=== PATIENT | male | born 1960 | race Caucasian/White ===

== ENCOUNTER 2017-06-20 14:46 | Inpatient (IN) | payer BC ==
[~2017-06-20] VITALS: Ht 182.9 cm; Wt 72.6 kg
[2017-06-20 15:00] VITALS: BP 117/68
--- NOTE | 2017-06-20 16:23 | Emergency Room Report ---
History of Present Illness General Chief Complaint: Altered Level of Consciousness Source: Patient, Family Member, EMS Present Illness HPI 56-year-old male brought in by EMS with altered mental status Patient stated he took 30 of his 1 mg Ativan 6 hours prior Denies other drugs, ETOH His fianc found him altered at home Patient stated he wanted to "check out". No history of previous SI, HI he has known posterior 4 mm aneurysm - scheduled for operation "soon." Was supposed to go to Neurosurg followup today Allergies: Coded Allergies: No Known Allergies (Unverified , 06/20/17) Patient History Past Medical History: other - aneurysm, "heart infection" Past Surgical History: other - Valve replacement Pertinent Family History: none Social History: Denies: smoking, alcohol use, drug use Immunizations: UTD Reviewed Nursing Documentation: PMH: Agreed, PSxH: Agreed Nursing Documentation-PMH Hx Cardiac Problems: Yes Review of Systems All Other Systems: negative except mentioned in HPI Physical Exam Vital Signs Date Time Temp Pulse Resp B/P (MAP) Pulse Ox O2 Delivery O2 Flow Rate FiO2 06/20/17 14:39 98.1 72 16 120/68 99 Room Air Sp02 EP Interpretation: reviewed, normal General Appearance: normal inspection, well appearing, no apparent distress, alert, GCS 15, non-toxic, other - sleepy but arousable Head: normocephalic, atraumatic Eyes: bilateral eye PERRL, bilateral eye EOMI ENT: normal ENT inspection, hearing grossly normal, normal pharynx, no angioedema, normal voice, TMs + canals normal, uvula midline, moist mucus membranes Neck: normal inspection, full range of motion, supple, thyroid normal, no meningismus, no bony tend Respiratory: normal inspection, lungs clear, normal breath sounds, no rhonchi, no respiratory distress, no retraction, no accessory muscle use, no wheezing, speaking full sentences Cardiovascular #1: regular rate, rhythm, no edema, no JVD, normal capillary refill Gastrointestinal: normal inspection, normal bowel sounds, non tender, soft, no mass, no peritonitis, non-distended, no guarding, no hernia, no pulsatile mass Genitourinary: no CVA tenderness Musculoskeletal: normal inspection, back normal, normal range of motion, no calf tenderness, pelvis stable, Meg's Sign negative Neurologic: normal inspection, alert, oriented x3, responsive, flower arranger III-XII nml as tested, motor strength/tone normal, cerebellar normal, normal gait, speech normal Psychiatric: normal inspection, judgement/insight normal, mood/affect normal, no suicidal/homicidal ideation, no delusions Skin: normal inspection, normal color, no rash Lymphatic: normal inspection, no adenopathy Medical Decision Making Diagnostic Impression: Primary Impression: Altered level of consciousness Additional Impressions: Benzodiazepine overdose Qualified Codes: T42.4X2A - Poisoning by benzodiazepines, intentional self- harm, initial encounter MULUGETA (acute kidney injury) Opiate overdose Qualified Codes: T40.602A - Poisoning by unspecified narcotics, intentional self-harm, initial encounter Suicidal ideation ER Course Patient with intentional benzo overdose Vital signs stable Patient sleepy but arousable Endorses SI No antitote available - charcoal not recommended 6 hours out Labs: Urine toxicology positive for opiates Not positive for benzos On CT head: No acute intracranial hemorrhage Questionable benzo overdose, is given IV Narcan low-dose with improvement. Now more awake, patient endorses also opiate OD. Tele admit Panel Dr Wang, 720pm Mild MULUGETA on labs - was given IVF EKG Diagnostic Results Rate: normal Rhythm: NSR ST Segments: no acute changes ASA given to the pt in ED: No Rhythm Strip Diag. Results EP Interpretation: yes Rate: 56 Rhythm: NSR, no PVC's, no ectopy Last Vital Signs Date Time Temp Pulse Resp B/P (MAP) Pulse Ox O2 Delivery O2 Flow Rate FiO2 06/20/17 14:39 98.1 72 16 120/68 99 Room Air Status: improved Disposition: ADMITTED INPATIENT Condition: Serious Referrals: NOT CHOSEN IPA/,REFERRING (PCP) AMBER HANSON M.D. Jun 20, 2017 16:23
[2017-06-20 16:32] LABS: BASOPHILS % (AUTO) 1.1 % (0.0-2.0); EOSINOPHILS % (AUTO) 3.9 % (0.0-3.0); MEAN CORPUSCULAR HEMOGLOBIN 29.2 PG (27.0-31.0); MEAN CORPUSCULAR HGB CONC 31.8 G/DL (32.0-36.0); MEAN CORPUSCULAR VOLUME 92 FL (80-99); MEAN PLATELET VOLUME 5.8 FL (6.5-10.1); MONOCYTES % (AUTO) 6.5 % (1.0-10.0); NEUTROPHILS % (AUTO) 56.5 % (45.0-75.0); PLATELET COUNT 290 K/UL (150-450); RED BLOOD COUNT 5.58 M/UL (4.70-6.10); RED CELL DISTRIBUTION WIDTH 11.5 % (11.6-14.8); WHITE BLOOD COUNT 6.6 K/UL (4.8-10.8)
[2017-06-20 16:44] LABS: ANION GAP 2 mmol/L (5-15); CALCIUM 9.1 MG/DL (8.5-10.1); CARBON DIOXIDE 31 MMOL/L (21-32); CHLORIDE 105 MMOL/L (98-107); CREATININE 1.4 MG/DL (0.55-1.30); GLOMERULAR FILTRATION RATE 52.2 mL/min (>60); POTASSIUM 4.6 MMOL/L (3.5-5.1); SODIUM 138 MMOL/L (136-145)
[2017-06-20 16:52] LABS: ACETAMINOPHEN 19 MCG/ML (10-30); ALANINE AMINOTRANSFERASE 32 U/L (12-78); ALCOHOL < 3 mg/dL; ASPARTATE AMINO TRANSFERASE 31 U/L (15-37); TOTAL PROTEIN 7.2 G/DL (6.4-8.2)
[2017-06-20 17:10] VITALS: BP 104/76
[2017-06-20] MEDS ORDERED: Naloxone 0.4mg/ml Inj IVP ONE (17:30)
[2017-06-20 19:16] VITALS: BP 112/73
[2017-06-20] MEDS ORDERED: ZOLOFT50 MG ORAL (20:41)
[2017-06-20] MEDS ORDERED: ABILIFY10 MG ORAL (20:41)
[2017-06-20] MEDS ORDERED: FLUOXETINE HCL20 MG ORAL (20:41)
[2017-06-20] MEDS ORDERED: ALLOPURINOL100 M1 ORAL (20:41)
[2017-06-20] MEDS ORDERED: ASPIR 8181 MG ORAL (20:41)
[2017-06-20] MEDS ORDERED: NORTRIPTYLINE H75 MG PO (20:41)
[2017-06-20] MEDS ORDERED: VICODIN 5-3001 EACH ORAL (20:48)
[2017-06-20] MEDS ORDERED: ATIVAN0.5 MG ORAL (20:48)
[2017-06-20 21:09] VITALS: BP 111/72
[2017-06-20 23:14] VITALS: BP 102/82
[2017-06-20] MEDS ORDERED: Acetaminophen 500mg (ES) tab ORAL PRN (23:15)
[2017-06-21] VITALS (10 sets, daily range): BP systolic 91–152; BP diastolic 59–97
[2017-06-21 05:42] LABS: BASOPHILS % (AUTO) 0.7 % (0.0-2.0); EOSINOPHILS % (AUTO) 3.3 % (0.0-3.0); LYMPHOCYTES % (AUTO) 34.2 % (20.0-45.0); MEAN CORPUSCULAR HEMOGLOBIN 30.6 PG (27.0-31.0); MEAN CORPUSCULAR HGB CONC 33.2 G/DL (32.0-36.0); MEAN CORPUSCULAR VOLUME 92 FL (80-99); MEAN PLATELET VOLUME 6.4 FL (6.5-10.1); NEUTROPHILS % (AUTO) 55.8 % (45.0-75.0); PLATELET COUNT 299 K/UL (150-450); RED BLOOD COUNT 5.17 M/UL (4.70-6.10); RED CELL DISTRIBUTION WIDTH 11.5 % (11.6-14.8); WHITE BLOOD COUNT 7.3 K/UL (4.8-10.8)
[2017-06-21 05:53] LABS: ALANINE AMINOTRANSFERASE 26 U/L (12-78); ALBUMIN/GLOBULIN RATIO 1.1 (1.0-2.7); ANION GAP 4 mmol/L (5-15); ASPARTATE AMINO TRANSFERASE 28 U/L (15-37); CALCIUM 8.7 MG/DL (8.5-10.1); CARBON DIOXIDE 30 MMOL/L (21-32); CHLORIDE 105 MMOL/L (98-107); CREATININE 1.2 MG/DL (0.55-1.30); GLOMERULAR FILTRATION RATE > 60 mL/min (>60); SODIUM 139 MMOL/L (136-145); TOTAL PROTEIN 6.4 G/DL (6.4-8.2)
--- NOTE | 2017-06-21 11:44 | Diagnostic Imaging Report ---
Indication: Altered mental status Technique: Continuous helical CT scanning of the head was performed without intravenous contrast material. Axial and coronal 5 mm sections were generated. Radiation dose was minimized using automated exposure control Dose: Total Dose Length Product - DLP [address] Dose Index - CTDIvol(s) 70.38 mGy. Comparison: none Findings: The ventricular system is normal in size and configuration. There is no shift of midline structures. No abnormal extra-axial fluid collections are noted. There is no evidence of intracerebral bleeding. No other abnormal high or low density areas are noted within the brain. Intact calvarium. Visualized orbits and sinuses are unremarkable Impression: Normal CT scan of the head without contrast material. This agrees with the preliminary interpretation provided overnight by [facility]. The CT scanner at [facility] is accredited by the [employer] and the scans are performed using protocols designed to limit radiation exposure to as low as reasonably achievable to attain images of sufficient resolution adequate for diagnostic evaluation.
--- NOTE | 2017-06-21 16:59 | Cardiology Report ---
APPROVED REPORT EKG Measurement Heart [id number] Normal sinus rhythm Possible Left atrial enlargement Left axis deviation Low voltage QRS Inferior infarct, age undetermined Cannot rule out Anterior infarct, age undetermined Abnormal ECG
[2017-06-21] MEDS ORDERED: Methocarbamol 500mg tab ORAL PRN (18:30)
--- NOTE | 2017-06-21 18:30 | Consultation ---
History of Present Illness General Date patient seen: Jun 21, 2017 Chief Complaint: Altered Level of Consciousness Present Illness Allergies: Coded Allergies: No Known Allergies (Unverified , 06/20/17) Medication History Scheduled Allopurinol* (Allopurinol*), 200 MG ORAL DAILY, (Reported) Aripiprazole* (Abilify*), 10 MG ORAL HS, (Reported) Fluoxetine Hcl* (Fluoxetine Hcl*), 20 MG ORAL DAILY, (Reported) Lorazepam* (Ativan*), 0.5 MG ORAL THREE TIMES A DAY, (Reported) Nortriptyline Hcl (Nortriptyline Hcl), 150 MG PO DAILY, (Reported) Sertraline Hcl* (Zoloft*), 50 MG ORAL HS, (Reported) Scheduled PRN Hydrocodone Bit/Acetaminophen (Vicodin 5-300 Mg Tablet), 1 TAB ORAL Q4H PRN for For Pain, (Reported) Discontinued Medications Aspirin* (Aspir 81*), 81 MG ORAL DAILY, (Reported) Discontinued Reason: Pt stopped taking med Patient History Healthcare decision maker Resuscitation status Full Code Advanced Directive on File Physical Exam Last 24 Hour Vital Signs Date Time Temp Pulse Resp B/P (MAP) Pulse Ox O2 Delivery O2 Flow Rate FiO2 06/21/17 17:32 69 06/21/17 17:04 74 120/77 06/21/17 16:00 97.0 84 22 152/97 96 06/21/17 12:30 96.6 68 20 112/84 99 Nasal Cannula 2.0 06/21/17 11:47 73 06/21/17 09:37 67 06/21/17 09:00 97.6 74 11 114/59 98 Nasal Cannula 2.0 06/21/17 09:00 97.6 71 15 108/74 99 Nasal Cannula 1.0 06/21/17 08:28 97.6 72 11 108/74 99 Nasal Cannula 1.0 06/21/17 06:41 67 22 114/75 97 Nasal Cannula 1.0 06/21/17 05:11 69 15 112/79 100 Nasal Cannula 2.0 06/21/17 03:11 70 12 91/71 100 Nasal Cannula 2.0 06/21/17 01:20 65 10 99/63 100 Nasal Cannula 2.0 06/20/17 23:14 61 10 102/82 100 Nasal Cannula 2.0 06/20/17 21:09 58 15 111/72 100 Nasal Cannula 2.0 06/20/17 19:16 98.1 60 12 112/73 95 Nasal Cannula 2.0 Intake and Output 06/20/17 06/21/17 19:00 07:00 Intake Total 1000 ml Output Total 30 ml Balance 970 ml Intake IV Total 1000 ml Output Urine Total 30 ml Laboratory Tests Test 06/21/17 05:37 White Blood Count 7.3 K/UL (4.8-10.8) Red Blood Count 5.17 M/UL (4.70-6.10) Hemoglobin 15.8 G/DL (14.2-18.0) Hematocrit 47.6 % (42.0-52.0) Mean Corpuscular Volume 92 FL (80-99) Mean Corpuscular Hemoglobin 30.6 PG (27.0-31.0) Mean Corpuscular Hemoglobin Concent 33.2 G/DL (32.0-36.0) Red Cell Distribution Width 11.5 % (11.6-14.8) L Platelet Count 299 K/UL (150-450) Mean Platelet Volume 6.4 FL (6.5-10.1) L Neutrophils (%) (Auto) 55.8 % (45.0-75.0) Lymphocytes (%) (Auto) 34.2 % (20.0-45.0) Monocytes (%) (Auto) 6.0 % (1.0-10.0) Eosinophils (%) (Auto) 3.3 % (0.0-3.0) H Basophils (%) (Auto) 0.7 % (0.0-2.0) Sodium Level 139 MMOL/L (136-145) Potassium Level 4.0 MMOL/L (3.5-5.1) Chloride Level 105 MMOL/L (98-107) Carbon Dioxide Level 30 MMOL/L (21-32) Anion Gap 4 mmol/L (5-15) L Blood Urea Nitrogen 12 mg/dL (7-18) Creatinine 1.2 MG/DL (0.55-1.30) Estimat Glomerular Filtration Rate > 60 mL/min (>60) Glucose Level 84 MG/DL (74-106) Calcium Level 8.7 MG/DL (8.5-10.1) Total Bilirubin 0.5 MG/DL (0.2-1.0) Aspartate Amino Transf (AST/SGOT) 28 U/L (15-37) Alanine Aminotransferase (ALT/SGPT) 26 U/L (12-78) Alkaline Phosphatase 61 U/L (46-116) Total Protein 6.4 G/DL (6.4-8.2) Albumin 3.3 G/DL (3.4-5.0) L Globulin 3.1 g/dL Albumin/Globulin Ratio 1.1 (1.0-2.7) Height (Feet): 6 Height (Inches): 0.00 Weight (Pounds): 160 Medications Current Medications Medications (Trade) Dose Ordered Sig/Itzel Route PRN Reason Start Time Stop Time Status Last Admin Dose Admin Acetaminophen (Tylenol) 500 mg Q4H PRN ORAL Mild Pain/Temp > 100.5 06/20/17 23:15 07/20/17 23:14 Dextrose (Dextrose 50%) STAT PRN IV Hypoglycemia 06/20/17 23:15 07/20/17 23:14 Assessment/Plan Assessment/Plan (1) Lumbago (2) Polysubstance overdose (3) Suicidal ideation Seen dictated DOYLE HEWITT Jun 21, 2017 18:30
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
[2017-06-22 04:00] VITALS: BP 100/64
--- NOTE | 2017-06-22 06:15 | History and Physical Report ---
DATE OF ADMISSION: 06/20/2017 HISTORY OF PRESENT ILLNESS: History is also correlated by the jorge at the bedside. The patient basically overdosed on a complete bottle of Ambien. The patient says that it was approximately 60 Ambien that he chewed as well as approximately 20 Vicodin and approximately 20 to 30 were also taken for intentional overdose. The patient denies pain. Denies nausea, vomiting, or diarrhea. Denies abdominal pain. Denies shortness of breath. Denies cough. Denies palpitations. Denies chills. Denies chest pain. The patient is admitted to telemetry for close monitoring. PAST MEDICAL HISTORY: Depression, psychosis, gout and depression. The patient also has chronic back pain. Past medical history as mentioned depression, history of drug abuse, chronic back pain, history of smoking and history of anxiety, history of brain aneurysm as well as history of CVA, history of organic brain syndrome and history of hypertension. PAST SURGICAL HISTORY: Appendectomy, heart valve replacement, and history of endocarditis. ALLERGIES: To penicillin. MEDICATIONS: Abilify, Ativan and Zoloft. FAMILY HISTORY: Noncontributory. REVIEW OF SYSTEMS: HEENT: Denies headaches. Respiratory: Denies shortness of breath. Denies cough. Cardiovascular: Denies chest pain. Gastrointestinal: Denies nausea, vomiting, or diarrhea. Extremities: Denies pain. Central venous systems: Significant changes in speech pattern. PHYSICAL EXAMINATION: VITAL SIGNS: Basically, temperature is 97, pulse is 68, and blood pressure 112/84. HEENT: PERRLA. NECK: Supple. No lymphadenopathy. CHEST: Clear to auscultation. CARDIOVASCULAR: Regular rate and rhythm. No murmurs or extra sounds. ABDOMEN: Soft, nontender and nondistended. No organomegaly. EXTREMITIES: No edema. Moves all 4 extremities. NEUROLOGICAL: Sensory is intact to light touch. Reflexes are equal on both sides. Oriented x3. LABORATORY DATA: WBC of 6.6, hemoglobin of 10.3, and platelet 290. Sodium 138, potassium 4.6, BUN 16 and creatinine 1.2. ASSESSMENT AND PLAN: The patient had overdose. I have asked Dr. Springer, Dr. Santana, Dr. Rich, Dr. Reina, and Dr. June to see the patient to make sure that there is no brain damage as well as Dr. Rich for pain control and Dr. Mcmanus for suicide attempt and Dr. Springer for the dehydration . Konrad Tamayo M.D. DR: MJ JOB#: [id number] CC:
[2017-06-22 08:00] VITALS: BP 119/88
--- NOTE | 2017-06-22 09:02 | General Progress Note ---
Assessment/Plan Assessment/Plan (1) Lumbago (2) Polysubstance overdose (3) Suicidal ideation Pt will be continued on the Neurontin and Robaxin. D/w Dr. Rich and he concurred. Subjective Date patient seen: Jun 22, 2017 Time patient seen: 08:15 - am Constitutional: Reports: no symptoms HEENT: Reports: no symptoms Cardiovascular: Reports: no symptoms Respiratory: Reports: no symptoms Gastrointestinal/Abdominal: Reports: no symptoms Genitourinary: Reports: no symptoms Neurologic/Psychiatric: Reports: anxiety, depressed, emotional problems Endocrine: Reports: no symptoms Hematologic/Lymphatic: Reports: no symptoms Allergies: Coded Allergies: No Known Allergies (Unverified , 06/20/17) Subjective Patient in bed and shows no signs of pain. He has received 2 doses of the Neurontin. He is emotional this morning and waiting to be seen by the Neurologist and Psychiatrist. Objective Last 24 Hour Vital Signs Date Time Temp Pulse Resp B/P (MAP) Pulse Ox O2 Delivery O2 Flow Rate FiO2 06/22/17 08:00 97.9 85 17 119/88 96 Room Air 06/22/17 04:00 97.0 64 18 100/64 98 Room Air 06/22/17 04:00 78 06/22/17 00:00 80 06/21/17 20:35 96.3 70 18 118/77 90 Room Air 06/21/17 20:00 75 06/21/17 17:32 69 06/21/17 17:04 74 120/77 06/21/17 16:00 97.0 84 22 152/97 96 06/21/17 12:30 96.6 68 20 112/84 99 Nasal Cannula 2.0 06/21/17 11:47 73 06/21/17 09:37 67 Intake and Output 06/21/17 06/22/17 19:00 07:00 Intake Total 375 ml 300 ml Balance 375 ml 300 ml Intake Oral 300 ml IV Total 375 ml # Voids 3 4 Height (Feet): 6 Height (Inches): 0.00 Weight (Pounds): 160 General Appearance: alert EENT: PERRL/EOMI, normal ENT inspection Neck: non-tender, normal alignment Cardiovascular: normal rate, regular rhythm Respiratory/Chest: lungs clear, normal breath sounds Abdomen: non tender, soft Extremities: non-tender, normal inspection Edema: no edema noted Arm (L), no edema noted Arm (R), no edema noted Leg (L), no edema noted Leg (R), no edema noted Pedal (L), no edema noted Pedal (R), no edema noted Generalized Neurologic: alert, responsive Skin: warm/dry DOYLE HEWITT Jun 22, 2017 09:02
[2017-06-22 09:19] LABS: EOSINOPHILS % (AUTO) 3.5 % (0.0-3.0); LYMPHOCYTES % (AUTO) 21.4 % (20.0-45.0); MEAN CORPUSCULAR HEMOGLOBIN 31.4 PG (27.0-31.0); MEAN CORPUSCULAR VOLUME 92 FL (80-99); MEAN PLATELET VOLUME 6.1 FL (6.5-10.1); MONOCYTES % (AUTO) 6.1 % (1.0-10.0); PLATELET COUNT 304 K/UL (150-450); RED BLOOD COUNT 5.17 M/UL (4.70-6.10); RED CELL DISTRIBUTION WIDTH 11.2 % (11.6-14.8); WHITE BLOOD COUNT 7.5 K/UL (4.8-10.8)
[2017-06-22 10:11] LABS: ALANINE AMINOTRANSFERASE 26 U/L (12-78); ALBUMIN/GLOBULIN RATIO 0.9 (1.0-2.7); ANION GAP 12 mmol/L (5-15); ASPARTATE AMINO TRANSFERASE 22 U/L (15-37); CALCIUM 8.7 MG/DL (8.5-10.1); CARBON DIOXIDE 25 MMOL/L (21-32); CHLORIDE 104 MMOL/L (98-107); CREATININE 1.2 MG/DL (0.55-1.30); GLOMERULAR FILTRATION RATE > 60 mL/min (>60); POTASSIUM 3.4 MMOL/L (3.5-5.1); SODIUM 140 MMOL/L (136-145); TOTAL PROTEIN 6.6 G/DL (6.4-8.2)
[2017-06-22 12:00] VITALS: BP 131/97
--- NOTE | 2017-06-22 13:54 | Neurology Progress Note ---
Objective Physical Exam Last Vital Signs Date Time Temp Pulse Resp B/P (MAP) Pulse Ox O2 Delivery O2 Flow Rate FiO2 06/22/17 12:00 97.7 86 18 131/97 99 Room Air 06/21/17 12:30 2.0 Laboratory Tests Test 06/22/17 08:20 White Blood Count 7.5 K/UL (4.8-10.8) Red Blood Count 5.17 M/UL (4.70-6.10) Hemoglobin 16.2 G/DL (14.2-18.0) Hematocrit 47.7 % (42.0-52.0) Mean Corpuscular Volume 92 FL (80-99) Mean Corpuscular Hemoglobin 31.4 PG (27.0-31.0) H Mean Corpuscular Hemoglobin Concent 34.0 G/DL (32.0-36.0) Red Cell Distribution Width 11.2 % (11.6-14.8) L Platelet Count 304 K/UL (150-450) Mean Platelet Volume 6.1 FL (6.5-10.1) L Neutrophils (%) (Auto) 68.0 % (45.0-75.0) Lymphocytes (%) (Auto) 21.4 % (20.0-45.0) Monocytes (%) (Auto) 6.1 % (1.0-10.0) Eosinophils (%) (Auto) 3.5 % (0.0-3.0) H Basophils (%) (Auto) 1.0 % (0.0-2.0) Sodium Level 140 MMOL/L (136-145) Potassium Level 3.4 MMOL/L (3.5-5.1) L Chloride Level 104 MMOL/L (98-107) Carbon Dioxide Level 25 MMOL/L (21-32) Anion Gap 12 mmol/L (5-15) Blood Urea Nitrogen 14 mg/dL (7-18) Creatinine 1.2 MG/DL (0.55-1.30) Estimat Glomerular Filtration Rate > 60 mL/min (>60) Glucose Level 162 MG/DL (74-106) H Calcium Level 8.7 MG/DL (8.5-10.1) Total Bilirubin 0.2 MG/DL (0.2-1.0) Aspartate Amino Transf (AST/SGOT) 22 U/L (15-37) Alanine Aminotransferase (ALT/SGPT) 26 U/L (12-78) Alkaline Phosphatase 65 U/L (46-116) Total Protein 6.6 G/DL (6.4-8.2) Albumin 3.2 G/DL (3.4-5.0) L Globulin 3.4 g/dL Albumin/Globulin Ratio 0.9 (1.0-2.7) L Impression/Recommendations Recommendations #[id number] MARIBEL ROMAN Jun 22, 2017 13:54
[2017-06-22 16:00] VITALS: BP 139/86
--- NOTE | 2017-06-22 17:15 | Consultation ---
DATE OF CONSULTATION: 06/21/2017 NOTE: POOR AUDIO QUALITY PAIN MANAGEMENT CONSULTATION CONSULTING PHYSICIAN: Brandyn Rich M.D. REFERRING PHYSICIAN: Konrad Tamayo M.D. PHYSICIAN SUPER[employer]OR [employer]: Rebeca Reich CHIEF COMPLAINT: Polysubstance overdose. HISTORY OF PRESENT ILLNESS: This is a 56-year-old male, who [place] [facility] [place]. The patient is having multiple issues at home and low back pain. It causes him chronic pain and reporting that he is becoming overly depressed taking Ativan, Ambien, and Vicodin in a suicidal attempt. He was brought to the emergency room where Narcan was given. The patient now is in the bed and no signs of distress or pain at this time. He complaining of chronic back pain with radiation to the right lower extremity. He is taking Vicodin as an outpatient which he received 20 tabs from an ER physician and given epidural injection. The patient also is seeing a neurologist and Neurosurgery due to aneurysm as an outpatient. We were consulted so that the patient would have adequate pain control while here in the hospital. PAST MEDICAL HISTORY: Hypertension and endocarditis. PAST SURGICAL HISTORY: Left knee, open heart surgery, appendectomy, and nasal surgery. MEDICATIONS: Ativan, Abilify, fluoxetine, Ativan, atropine, Zoloft, Ambien, and Vicodin. ALLERGIES: No known drug allergies. SOCIAL HISTORY: He is having a history of smoking tobacco and drug abuse. Denies alcohol use. REVIEW OF SYSTEMS: Denies rash, fever, chills, sweating, dizziness, drowsiness, blurred vision, sore throat, or change in his weight. No shortness of breath, chest pain, palpitations, or cough. No nausea, vomiting, diarrhea, or blood in the stool or urine. No bowel or bladder incontinence. No dysuria. He is complaining of low back pain. PHYSICAL EXAMINATION: GENERAL: Alert, awake, and oriented x3. VITAL SIGNS: Blood pressure 120/71, heart rate 74, oxygen saturation is 92%, respirations 20, and temperature 97 degrees Fahrenheit. HEENT: PERRLA. NECK: Range of motion is full. No tenderness to paracervical muscles. No adenopathy. LUNGS: Clear. HEART: Regular. ABDOMEN: Benign. BACK: Range of motion is decreased in flexion and extension with tenderness to paraspinal muscles, trapezius, and rhomboid muscles. EXTREMITIES: Upper extremity range of motion is full in all directions. Motor is intact. No cyanosis. No clubbing. No edema. Sensory is intact. Reflexes are not obtainable. No adenopathy. Lower extremity range of motion is full in all directions. Motor is intact. No cyanosis. No clubbing. No edema. Sensory is intact. Reflexes are not obtainable. No adenopathy. ASSESSMENT AND PLAN: This is a 56-year-old male with lumbago, polysubstance overdose, and suicidal ideation. The patient is will be started on Neurontin 100 mg tablet three times a day with Robaxin 500 mg tablet every eight hours as needed for muscle spasm. We recommend the patient to be seen by a psychiatrist as well as a neurologist for further care. The patient was discussed with Dr. Rich and Dr. Rich concurred. We will follow the patient. Thank you very much for the courtesy of this consultation. Brandyn Rich M.D. DALTON Reich DR: SHANA JOB#: [id number] CC: KAMERON
--- NOTE | 2017-06-22 19:18 | Cardiology Progress Note ---
Assessment/Plan Assessment/Plan The patient is seen and examined, full consult note is dictated. Objective Last 24 Hour Vital Signs Date Time Temp Pulse Resp B/P (MAP) Pulse Ox O2 Delivery O2 Flow Rate FiO2 06/22/17 16:00 97.7 79 19 139/86 97 Room Air 06/22/17 16:00 97 06/22/17 12:00 97.7 86 18 131/97 99 Room Air 06/22/17 12:00 93 06/22/17 08:00 87 06/22/17 08:00 97.9 85 17 119/88 96 Room Air 06/22/17 04:00 97.0 64 18 100/64 98 Room Air 06/22/17 04:00 78 06/22/17 00:00 80 06/21/17 20:35 96.3 70 18 118/77 90 Room Air 06/21/17 20:00 75 Intake and Output 06/21/17 06/22/17 19:00 07:00 Intake Total 375 ml 300 ml Balance 375 ml 300 ml Intake Oral 300 ml IV Total 375 ml # Voids 3 4 Laboratory Tests Test 06/22/17 08:20 White Blood Count 7.5 K/UL (4.8-10.8) Red Blood Count 5.17 M/UL (4.70-6.10) Hemoglobin 16.2 G/DL (14.2-18.0) Hematocrit 47.7 % (42.0-52.0) Mean Corpuscular Volume 92 FL (80-99) Mean Corpuscular Hemoglobin 31.4 PG (27.0-31.0) H Mean Corpuscular Hemoglobin Concent 34.0 G/DL (32.0-36.0) Red Cell Distribution Width 11.2 % (11.6-14.8) L Platelet Count 304 K/UL (150-450) Mean Platelet Volume 6.1 FL (6.5-10.1) L Neutrophils (%) (Auto) 68.0 % (45.0-75.0) Lymphocytes (%) (Auto) 21.4 % (20.0-45.0) Monocytes (%) (Auto) 6.1 % (1.0-10.0) Eosinophils (%) (Auto) 3.5 % (0.0-3.0) H Basophils (%) (Auto) 1.0 % (0.0-2.0) Sodium Level 140 MMOL/L (136-145) Potassium Level 3.4 MMOL/L (3.5-5.1) L Chloride Level 104 MMOL/L (98-107) Carbon Dioxide Level 25 MMOL/L (21-32) Anion Gap 12 mmol/L (5-15) Blood Urea Nitrogen 14 mg/dL (7-18) Creatinine 1.2 MG/DL (0.55-1.30) Estimat Glomerular Filtration Rate > 60 mL/min (>60) Glucose Level 162 MG/DL (74-106) H Calcium Level 8.7 MG/DL (8.5-10.1) Total Bilirubin 0.2 MG/DL (0.2-1.0) Aspartate Amino Transf (AST/SGOT) 22 U/L (15-37) Alanine Aminotransferase (ALT/SGPT) 26 U/L (12-78) Alkaline Phosphatase 65 U/L (46-116) Total Protein 6.6 G/DL (6.4-8.2) Albumin 3.2 G/DL (3.4-5.0) L Globulin 3.4 g/dL Albumin/Globulin Ratio 0.9 (1.0-2.7) L BILLIE GREER Jun 22, 2017 19:18
[2017-06-22 20:36] VITALS: BP 108/74
--- NOTE | 2017-06-22 21:00 | General Progress Note ---
Assessment/Plan Problem List: (1) Altered level of consciousness ICD Codes: R40.4 - Transient alteration of awareness SNOMED: 5952424 (2) Benzodiazepine overdose ICD Codes: T42.4X1A - Poisoning by benzodiazepines, accidental (unintentional) , initial encounter SNOMED: 795956878 Qualifiers: Qualified Codes: T42.4X2A - Poisoning by benzodiazepines, intentional self- harm, initial encounter (3) Opiate overdose ICD Codes: T40.601A - Poisoning by unspecified narcotics, accidental ( unintentional), initial encounter SNOMED: 712566373, 430539808 Qualifiers: Qualified Codes: T40.602A - Poisoning by unspecified narcotics, intentional self-harm, initial encounter (4) Suicidal ideation ICD Codes: R45.851 - Suicidal ideations SNOMED: 2382731, 194377139 Status: progressing Assessment/Plan patient and family insisting to go home so i gave dc order as long as cleared by dr fountain and dr whitehead and dr coronado Subjective ROS Limited/Unobtainable: Yes Allergies: Coded Allergies: No Known Allergies (Unverified , 06/20/17) Objective Last 24 Hour Vital Signs Date Time Temp Pulse Resp B/P (MAP) Pulse Ox O2 Delivery O2 Flow Rate FiO2 06/22/17 20:36 97.3 86 18 108/74 97 Room Air 06/22/17 16:00 97.7 79 19 139/86 97 Room Air 06/22/17 16:00 97 06/22/17 12:00 97.7 86 18 131/97 99 Room Air 06/22/17 12:00 93 06/22/17 08:00 87 06/22/17 08:00 97.9 85 17 119/88 96 Room Air 06/22/17 04:00 97.0 64 18 100/64 98 Room Air 06/22/17 04:00 78 06/22/17 00:00 80 Intake and Output 06/21/17 06/22/17 19:00 07:00 Intake Total 375 ml 300 ml Balance 375 ml 300 ml Intake Oral 300 ml IV Total 375 ml # Voids 3 4 Laboratory Tests 06/22/17 08:20: White Blood Count 7.5, Red Blood Count 5.17, Hemoglobin 16.2, Hematocrit 47.7, Mean Corpuscular Volume 92, Mean Corpuscular Hemoglobin 31.4H, Mean Corpuscular Hemoglobin Concent 34.0, Red Cell Distribution Width 11.2L, Platelet Count 304, Mean Platelet Volume 6.1L, Neutrophils (%) (Auto) 68.0, Lymphocytes (%) (Auto) 21.4, Monocytes (%) (Auto) 6.1, Eosinophils (%) (Auto) 3.5H, Basophils (%) (Auto ) 1.0, Sodium Level 140, Potassium Level 3.4L, Chloride Level 104, Carbon Dioxide Level 25, Anion Gap 12, Blood Urea Nitrogen 14, Creatinine 1.2, Estimat Glomerular Filtration Rate > 60, Glucose Level 162H, Calcium Level 8.7, Total Bilirubin 0.2, Aspartate Amino Transf (AST/SGOT) 22, Alanine Aminotransferase ( ALT/SGPT) 26, Alkaline Phosphatase 65, Total Protein 6.6, Albumin 3.2L, Globulin 3.4, Albumin/Globulin Ratio 0.9L Height (Feet): 6 Height (Inches): 0.00 Weight (Pounds): 160 Konrad Tamayo MD Jun 22, 2017 21:00
--- NOTE | 2017-06-22 22:24 | General Progress Note ---
Assessment/Plan Status: stable Assessment/Plan mdd narcissism borderline not a dts/dto may leave Subjective Neurologic/Psychiatric: Reports: anxiety, depressed, emotional problems Allergies: Coded Allergies: No Known Allergies (Unverified , 06/20/17) Subjective the pt denied si/hi the pts case was discussed with family at length the pt wants to go home family wants to take him home Objective Last 24 Hour Vital Signs Date Time Temp Pulse Resp B/P (MAP) Pulse Ox O2 Delivery O2 Flow Rate FiO2 06/22/17 20:36 97.3 86 18 108/74 97 Room Air 06/22/17 16:00 97.7 79 19 139/86 97 Room Air 06/22/17 16:00 97 06/22/17 12:00 97.7 86 18 131/97 99 Room Air 06/22/17 12:00 93 06/22/17 08:00 87 06/22/17 08:00 97.9 85 17 119/88 96 Room Air 06/22/17 04:00 97.0 64 18 100/64 98 Room Air 06/22/17 04:00 78 06/22/17 00:00 80 Intake and Output 06/21/17 06/22/17 19:00 07:00 Intake Total 375 ml 300 ml Balance 375 ml 300 ml Intake Oral 300 ml IV Total 375 ml # Voids 3 4 Laboratory Tests 06/22/17 08:20: White Blood Count 7.5, Red Blood Count 5.17, Hemoglobin 16.2, Hematocrit 47.7, Mean Corpuscular Volume 92, Mean Corpuscular Hemoglobin 31.4H, Mean Corpuscular Hemoglobin Concent 34.0, Red Cell Distribution Width 11.2L, Platelet Count 304, Mean Platelet Volume 6.1L, Neutrophils (%) (Auto) 68.0, Lymphocytes (%) (Auto) 21.4, Monocytes (%) (Auto) 6.1, Eosinophils (%) (Auto) 3.5H, Basophils (%) (Auto ) 1.0, Sodium Level 140, Potassium Level 3.4L, Chloride Level 104, Carbon Dioxide Level 25, Anion Gap 12, Blood Urea Nitrogen 14, Creatinine 1.2, Estimat Glomerular Filtration Rate > 60, Glucose Level 162H, Calcium Level 8.7, Total Bilirubin 0.2, Aspartate Amino Transf (AST/SGOT) 22, Alanine Aminotransferase ( ALT/SGPT) 26, Alkaline Phosphatase 65, Total Protein 6.6, Albumin 3.2L, Globulin 3.4, Albumin/Globulin Ratio 0.9L Height (Feet): 6 Height (Inches): 0.00 Weight (Pounds): 160 General Appearance: WD/WN, no apparent distress, alert Neurologic: alert, oriented x 3, responsive, depressed affect Raphael Mcmanus M.D. Jun 22, 2017 22:24
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
--- NOTE | 2017-06-22 23:45 | Consultation ---
DATE OF CONSULTATION: 06/22/2017 CARDIOLOGY CONSULTATION CONSULTING PHYSICIAN: Jan June M.D. REFERRING PHYSICIAN: Konrad Tamayo M.D. REASON FOR CONSULTATION: Management of heart murmur and irregular heart beat. HISTORY OF PRESENT ILLNESS: The patient is a very unfortunate 56-year-old gentleman with history of major depression, who had suicidal ideation due to a variety of factors including his recently diagnosed mycotic aneurysm, also a few other health issues, who had taken about 30 pills, a combination of lorazepam, Vicodin, and Ambien. He presented to the hospital. He was found down by his fiancee at home being altered. He was brought by paramedics to this facility. Initial blood pressure was 120/68 mm Hg and heart rate of 72. A 12-lead electrocardiogram showed sinus. He had 30 tablets of combination of Ativan and Ambien as well as Vicodin. He was found down by his fiancee at home. He was brought down to the [facility] emergency department where his blood pressure was 120/68 and pulse of 72. Initial 12-lead electrocardiogram shows sinus rhythm with left axis deviation and QT prolongation. The patient was admitted to the telemetry for further evaluation and management. His cardiac history is significant for history of mitral valve prolapse, for which he had mitral valve repair. He had bacterial endocarditis a year after this procedure, for which he required robotic mitral valve replacement done by Dr. Trejo at [facility]. 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 He is scheduled to be operated by Dr. Smart at [facility]. PAST MEDICAL HISTORY: Bacterial endocarditis, mitral valve prolapse, and depression. PAST SURGICAL HISTORY: 1. Mitral valve repair. 2. Mitral valve replacement, robotic by Dr. Trejo at [facility]. SOCIAL HISTORY: Denies any tobacco, alcohol, or illicit drug use. FAMILY HISTORY: No premature coronary artery disease in first-degree relatives. REVIEW OF SYSTEMS: HEENT: Denies any headache, diplopia, or blurred vision. CONSTITUTIONAL: Denies any fever, chills, night sweats, or weight loss. CARDIOVASCULAR: Denies any chest pain, shortness of breath, PND, orthopnea, or leg swelling at this time. PULMONARY: Denies any cough, hemoptysis, or wheezing. GASTROINTESTINAL: Denies any nausea, vomiting, diarrhea, constipation, abdominal pain, or GI bleed. GENITOURINARY: Denies any hematuria, dysuria, or incontinence. NEUROLOGY: Denies any motor dysfunction, sensory deficit, or altered speech. PHYSICAL EXAMINATION: GENERAL: The patient is a very unfortunate 56-year-old gentleman, in no apparent respiratory distress. Alert and oriented x4. VITAL SIGNS: Blood pressure was 120/68, pulse of 72, respirations 16, temperature 98.1 degrees Fahrenheit, and O2 saturation 99% on room air. HEENT: Atraumatic and normocephalic. Anicteric. Pupils are equal, round, and reactive to light and accommodation. Extraocular muscles intact. NECK: JVP less than 5 cm. No carotid bruit. Carotid upstrokes 2+ bilaterally. CARDIOVASCULAR: Normal S1 and S2. Regular rate and rhythm. There is a 2/6 mid systolic murmur at the left sternal border. There is midsternal scarring. LUNGS: Clear to auscultation bilaterally. ABDOMEN: Soft, nontender, and nondistended. No hepatosplenomegaly. Positive bowel sounds. EXTREMITIES: No evidence of edema, clubbing, or cyanosis. LABORATORY AND DIAGNOSTIC DATA: Sodium was 138, potassium is 4.6, chloride 105, bicarbonate 31, BUN of 16, creatinine 1.4, and glucose is 103. Calcium is 9.1. WBC 6.6, hemoglobin 16.3, hematocrit 51.3 and platelet count is 290. A 12-lead electrocardiogram, sinus rhythm at a rate of 60 with left axis deviation, QS complex is suggestive of inferior wall infarct, left atrial enlargement, and QT prolongation. ASSESSMENT AND PLAN: The patient is a very unfortunate 56-year-old gentleman, who was seen in Cardiology consultation at the request of Dr. Tamayo. 1. Atrial premature complexes, which were evident on the cardiac cath tech, benign conditions. The patient does not require any treatment. This most likely originated from enlarged left atrium. 2. History of mitral valve prolapse with regurgitation, status post mitral valve repair. 3. History of bacterial endocarditis, status post mitral valve replacement by Dr. Trejo at [facility]. 4. Suicidal ideation. The patient was seen by Dr. Mcmanus in psychiatric consultation. 5. QT prolongation. I would like to give empiric magnesium sulfate administration about 2 g prior to discharge. I would like to thank, Dr. Tamayo, for allowing me to participate in the care of this patient. Jan June M.D. DR: NILSA JOB#: [id number] CC:
[2017-06-23 00:52] VITALS: BP 101/66
[2017-06-23 04:26] VITALS: BP 112/68
[2017-06-23 08:00] VITALS: BP 124/86
--- NOTE | 2017-06-23 08:09 | Cardiology Progress Note ---
Assessment/Plan Assessment/Plan 1. Atrial premature complexes, no cardiac intervention required. 2. History of mitral valve prolapse with regurgitation, status post mitral valve repair. 3. History of bacterial endocarditis, status post mitral valve replacement, stable. 4. QT prolongation, magnesium sulfate given, Mg level this am Subjective Subjective Sinus rhythm at 64. Objective Last 24 Hour Vital Signs Date Time Temp Pulse Resp B/P (MAP) Pulse Ox O2 Delivery O2 Flow Rate FiO2 06/23/17 04:26 97.7 64 18 112/68 96 Room Air 06/23/17 04:00 67 06/23/17 00:52 97.5 73 18 101/66 97 Room Air 06/23/17 00:00 75 06/22/17 20:36 97.3 86 18 108/74 97 Room Air 06/22/17 20:00 94 06/22/17 16:00 97.7 79 19 139/86 97 Room Air 06/22/17 16:00 97 06/22/17 12:00 97.7 86 18 131/97 99 Room Air 06/22/17 12:00 93 Intake and Output 06/22/17 06/23/17 19:00 07:00 Output Total 400 ml Balance -400 ml Output Urine Total 400 ml Laboratory Tests Test 06/22/17 08:20 White Blood Count 7.5 K/UL (4.8-10.8) Red Blood Count 5.17 M/UL (4.70-6.10) Hemoglobin 16.2 G/DL (14.2-18.0) Hematocrit 47.7 % (42.0-52.0) Mean Corpuscular Volume 92 FL (80-99) Mean Corpuscular Hemoglobin 31.4 PG (27.0-31.0) H Mean Corpuscular Hemoglobin Concent 34.0 G/DL (32.0-36.0) Red Cell Distribution Width 11.2 % (11.6-14.8) L Platelet Count 304 K/UL (150-450) Mean Platelet Volume 6.1 FL (6.5-10.1) L Neutrophils (%) (Auto) 68.0 % (45.0-75.0) Lymphocytes (%) (Auto) 21.4 % (20.0-45.0) Monocytes (%) (Auto) 6.1 % (1.0-10.0) Eosinophils (%) (Auto) 3.5 % (0.0-3.0) H Basophils (%) (Auto) 1.0 % (0.0-2.0) Sodium Level 140 MMOL/L (136-145) Potassium Level 3.4 MMOL/L (3.5-5.1) L Chloride Level 104 MMOL/L (98-107) Carbon Dioxide Level 25 MMOL/L (21-32) Anion Gap 12 mmol/L (5-15) Blood Urea Nitrogen 14 mg/dL (7-18) Creatinine 1.2 MG/DL (0.55-1.30) Estimat Glomerular Filtration Rate > 60 mL/min (>60) Glucose Level 162 MG/DL (74-106) H Calcium Level 8.7 MG/DL (8.5-10.1) Total Bilirubin 0.2 MG/DL (0.2-1.0) Aspartate Amino Transf (AST/SGOT) 22 U/L (15-37) Alanine Aminotransferase (ALT/SGPT) 26 U/L (12-78) Alkaline Phosphatase 65 U/L (46-116) Total Protein 6.6 G/DL (6.4-8.2) Albumin 3.2 G/DL (3.4-5.0) L Globulin 3.4 g/dL Albumin/Globulin Ratio 0.9 (1.0-2.7) L Objective HEENT: Atraumatic and normocephalic. Anicteric. Pupils are equal, round, and reactive to light and accommodation. Extraocular muscles intact. NECK: JVP less than 5 cm. No carotid bruit. Carotid upstrokes 2+ bilaterally. CARDIOVASCULAR: Normal S1 and S2. Regular rate and rhythm. There is a 2/6 mid systolic murmur at the left sternal border. There is midsternal scarring. LUNGS: Clear to auscultation bilaterally. ABDOMEN: Soft, nontender, and nondistended. No hepatosplenomegaly. Positive bowel sounds. EXTREMITIES: No evidence of edema, clubbing, or cyanosis. BILLIE GREER Jun 23, 2017 08:09
--- NOTE | 2017-06-23 09:17 | General Progress Note ---
Assessment/Plan Assessment/Plan (1) Lumbago (2) Polysubstance overdose (3) Suicidal ideation Pt will be continued on the Neurontin and Robaxin. D/w Dr. Rich and he concurred. Subjective Date patient seen: Jun 23, 2017 Time patient seen: 07:15 - am Constitutional: Reports: no symptoms HEENT: Reports: no symptoms Cardiovascular: Reports: no symptoms Respiratory: Reports: no symptoms Gastrointestinal/Abdominal: Reports: no symptoms Genitourinary: Reports: no symptoms Neurologic/Psychiatric: Reports: no symptoms Endocrine: Reports: no symptoms Hematologic/Lymphatic: Reports: no symptoms Allergies: Coded Allergies: No Known Allergies (Unverified , 06/20/17) Subjective Patient is in bed with family at bed side. He is looking better and was started on Risperdal as per psych. No signs of pain or distress and has no new complaints. Objective Last 24 Hour Vital Signs Date Time Temp Pulse Resp B/P (MAP) Pulse Ox O2 Delivery O2 Flow Rate FiO2 06/23/17 04:26 97.7 64 18 112/68 96 Room Air 06/23/17 04:00 67 06/23/17 00:52 97.5 73 18 101/66 97 Room Air 06/23/17 00:00 75 06/22/17 20:36 97.3 86 18 108/74 97 Room Air 06/22/17 20:00 94 06/22/17 16:00 97.7 79 19 139/86 97 Room Air 06/22/17 16:00 97 06/22/17 12:00 97.7 86 18 131/97 99 Room Air 06/22/17 12:00 93 Intake and Output 06/22/17 06/23/17 19:00 07:00 Output Total 400 ml Balance -400 ml Output Urine Total 400 ml Laboratory Tests 06/23/17 08:50: Magnesium Level [Pending] Height (Feet): 6 Height (Inches): 0.00 Weight (Pounds): 160 General Appearance: no apparent distress, alert EENT: PERRL/EOMI, normal ENT inspection Neck: non-tender, normal alignment Cardiovascular: normal rate, regular rhythm Abdomen: non tender, soft Extremities: non-tender Edema: no edema noted Arm (L), no edema noted Arm (R), no edema noted Leg (L), no edema noted Leg (R), no edema noted Pedal (L), no edema noted Pedal (R), no edema noted Generalized Neurologic: alert, responsive DOYLE HEWITT Jun 23, 2017 09:17
--- NOTE | 2017-06-23 17:47 | Progress Note ---
DATE: 06/23/2017 SUBJECTIVE: The patient is stabilized on Remeron and was able to sleep last night. Sister called again. Extensive conversation in regards to discharge and recommendation after discharge. The patient would like to get a prescription on Remeron. Initially, he was advised not to take nortriptyline as it may be detrimental to overdose on medication. Also recommended them to follow up with a new psychiatrist and psychologist. MENTAL STATUS EXAMINATION: The patient is alert and oriented x4, cooperative, pleasant. Mood is anxious. Affect is constricted, congruent with mood. Thought process is concrete. Thought content, no suicidal or homicidal ideations. No delusions. No auditory or visual hallucinations. ASSESSMENT: 1. Major depressive disorder, borderline and narcissistic personality trait. 2. Depressive disorder. PLAN: The patient was given prescription for Remeron, called this number [phone] and ordered Remeron for the patient. The patient will be discharged. He is not an imminent danger to self or others, not gravely disabled. Family in agreement. Raphael Mcmanus M.D. DR: SHELL JOB#: [id number] CC:
--- NOTE | 2017-06-27 21:28 | Discharge Summary ---
Discharge Summary Hospital Course Date of Admission Jun 20, 2017 at 18:33 Date of Discharge Jun 23, 2017 at 10:20 Admitting Diagnosis OVERDOSE HPI Tato Cuevas is a 56 year old male who was admitted on Jun 20, 2017 at 18:33 for Overdose Hospital Course dc summary #[id number] Discharge Condition Upon Discharge: stable Discharge Disposition Patient was discharged to Home (01) Discharge Diagnoses: Discharge Instructions Discharge Instructions Special Instructions I have been assigned to complete a D/C Summary on this account. I was not involved in the patient management Nancy Magdaleno NP ([place]) Jun 27, 2017 21:28
--- NOTE | 2017-06-28 04:30 | Discharge Summary 2 SIG ---
DATE OF ADMISSION: 06/20/2017 DATE OF DISCHARGE: 06/23/2017 REASON FOR ADMISSION: 56-year-old male, was brought by paramedics with altered mental status. The patient stated that he took 30 of 1 mg Ativan six hours prior. He denied other drugs and alcohol abuse. No prior history of suicidal ideation or homicidal ideation. The patient with a history of posterior 4 mm aneurysm . He was scheduled for surgery. The patient had an appointment for Neurosurgery to see neurosurgeon. Workup in the emergency room revealed stable vital signs. CT of the head revealed no acute intracranial pathology. Urine toxicology screen was positive for opiate, but not for benzodiazepine. The patient was sleepy, but arousable. No antidote was given, since charcoal not recommended 6 hours after ingestion. Due to the questionable benzodiazepine overdose, the patient was given IV Narcan low dose with significant improvement. While more awake, the patient also endorsed opiate overdose. Laboratory workup revealed mild acute kidney injury with BUN -16 and creatinine -1.4. Bolus of the IV fluid was given. The patient was admitted to telemetry floor with diagnosis of benzodiazepine overdose, opiate overdose, suicidal ideation, altered mental status, and acute kidney injury. HOSPITAL COURSE: The patient was admitted to telemetry floor. Neurologist seen and evaluated the patient. The patient did not show at the time of evaluation any change in level of consciousness and was recuperating well. Neurologist recommended psychiatric evaluation. The patient was neurologically stable for discharge home after cleared by Psychiatrist. Psychiatrist seen and evaluated the patient and diagnosed the patient with major depressive disorder and borderline narcissistic personality trait. Psychiatric medication regimen was optimized. According to psychiatrist, the patient was not a danger to self or danger to others and the patient could leave. Pain specialist seen and evaluated the patient. Pain management was provided with Neurontin and Robaxin. Pain was controlled. The patient with a history of chronic back pain. Creatinine down to normal after bolus of the IV fluids. There was upcoming surgical treatment for aneurysm. The patient was aware of followup with the neurosurgeon prior to scheduled surgery. Bioinformatics Support Specialist seen and evaluated the patient. Venous duplex of bilateral lower extremities was negative. The patient noted to have premature atrial complexes on the telemetry strip. According to emergency room orderly, no need for cardiac intervention. The patient had a history of mitral valve prolapse with regurgitation, status post mitral valve repair. The patient had a remote history of bacterial endocarditis. Noted on telemetry QT prolongation. Magnesium was replaced, and magnesium level up to normal-2.2. The patient was counseled on abstinence from the street drugs. The patient was also counseled on the avoidance of opiates and benzodiazepine. The patient was stable for discharge. FINAL DIAGNOSES: 1. Polysubstance overdose. 2. Status post suicidal attempt. 3. Major depressive disorder. 4. Borderline narcissistic personality trait. 5. History of brain aneurysm. 6. Premature atrial complexes. 7. Major depressive disorder. 8. History of mitral valve prolapse with regurgitation, status post mitral valve repair. 9. History of bacterial endocarditis. 10. QT prolongation. 11. Lumbago. DISCHARGE INSTRUCTIONS: The patient was discharged home. FOLLOWUP: Follow up with the primary medical doctor. Follow up with neurosurgeon for coming surgery as scheduled. Konrad Tamayo M.D. I have been assigned to dictate discharge summary on this account and I was not involved in the patient's management. Nancy Magdaleno ([facility]) N.P. DR: MARY JOB#: [id number] CC: KAMERON
--- NOTE | 2017-06-29 00:02 | Diagnostic Imaging Report ---
APPROVED REPORT CPT Code: 95955 Present Symptoms Comments: Screening BILATERAL: Imaging reveals a patent deep venous system bilaterally. There is no evidence of thrombus within the femoral, popliteal or tibial segments. The greater saphenous veins are also within normal limits. Doppler indicates normal spontaneous flow within these segments.
== END 2017-06-23 10:20 | disposition home or self-care (01) | DRG 918 ==
LOC: EDBD 14:46 → EMR 15:40 → 2E 18:33 → EDBEDREQ 18:38
DX: T42.4X2A Poisoning by benzodiazepines, intentional self-harm, initial encounter (principal); N17.9 Acute kidney failure, unspecified; I67.1 Cerebral aneurysm, nonruptured; R45.851 Suicidal ideations; G89.29 Other chronic pain; T42.6X2A Poisoning by other antiepileptic and sedative-hypnotic drugs, intentional self-harm, initial encounter; Y92.019 Unspecified place in single-family (private) house as the place of occurrence of the external cause; F41.9 Anxiety disorder, unspecified; F32.9 Major depressive disorder, single episode, unspecified; M54.5 Low back pain; I10 Essential (primary) hypertension; Z87.891 Personal history of nicotine dependence; F60.81 Narcissistic personality disorder; I45.81 Long QT syndrome; Z95.2 Presence of prosthetic heart valve; Z88.0 Allergy status to penicillin
CPT/HCPCS: 36415; 70450; 80053; 80307; 80329; 82962; 83735; 85025; 93005; 93970; 99285